=== PATIENT | male | born 1985 | race Two or more races ===

== ENCOUNTER 2021-03-07 08:32 | Outpatient (CLI) | payer OTHER ==
--- NOTE | 2021-03-07 09:26 | SLEEP CARE CONSULTATION ---
Information from patient questionnaire entered by Silverio Chaudhry MA. I have reviewed and concur with the information entered by Silverio Chaudhry MA. This document represents the service I personally performed and the decisions made by , Grace Christianson ARNP. History of Present Illness Service Date and Time: 03/07/2021 0832 Reason for Visit: New patient (PT WILL BRING COPY OF SLEEP STUDY AND CPAP CHIP), Previously diagnosed sleep apnea, sleep apnea on CPAP therapy, Other (UPDATE SUPPLIES) Date of Onset: 10 PLUS YEARS Usual bedtime: 10:00 -12:00 PM Time it takes to fall asleep: 30 MINUTE Snores at night: Yes Observed to quit breathing while asleep: Yes Sleeps alone due to snoring: No Number of times waking at night: 2-3 Reasons for waking at night: reports: Other (MOVING AROUND) Toss, Turn, or Twitch while sleeping: No Recalls having dreams: No Usually gets out of bed at: 7912-8479 Feels refreshed in the morning: No Morning headache: No Sleepy or fatigued during the day: Yes Ever fallen asleep while driving: No Takes day naps: Yes Dreams during day naps: No Prior sleep studies: Yes Year and Where: [facility] [id number]? Type of Sleep Study: Home sleep study Additional HPI information: FRAN ALONSO was previously diagnosed to have unknown, AHI unknown, sleep apnea-hypopnea syndrome and comes in today to establish care for CPAP therapy. - Parasomnia Symptoms Ever been unable to move upon waking from sleep: No Walks in sleep: No Talks in sleep: No Ever acted out dreams in sleep: No Ever felt weak in the knees when startled or emotional: No Bothered by creepy, crawly, restless sensations in legs: No Problems with memory or concentration: No CPAP Compliance Data - Data Reviewed with Patient Average duration of nightly device use: 5 HOURS Compliance rate %: 56 (90 days; 83 last 30 days) Current pressure setting (cmH2O): 5-15 Average residual AHI: 1.9 Central apnea: 0.1 Obstructive apnea: 1.2 Compliance data discussion: He has been getting his supplies from a company in [place] infrequently. He is using a full face ResMed F20, size large. He last changed it 1 month ago. He does have a backup mask at this time. Subjective Patient concerns: reports: nasal congestion (right sided congestion), dry mouth, nose, throat (dry nose), epistaxis (occasional ). denies: aerophagia, mask discomfort, air blowing in eyes, mask leak noise, condensation in mask/hose, other Observed to snore while using device: Yes (occasionally) Current pressure setting perceived as: comfortable On therapy, patient: reports: sleeping better, awakening more refreshed, being more awake and alert during the day, more rested overall. denies: drowsiness while driving Initial [place] Sleepiness Scale score: 6 (2021) Past Medical History Past Medical History: reports: Hypertension Social History The patient's occupation is a [employer]. Patient is and lives in [place]. Have you smoked in the past 12 months: No Quit date: 2007 Alcohol use: Yes Alcohol amount and frequency: 3 -4 X MONLY Caffeine use: No Caffeine amount and frequency: QUIT COFFEE 3 WEEKS AGO Family History Family history of sleep disordered breathing: Yes Family Hx Sleep Apnea: Mother: Snoring, Sleep apnea - Untreated Allergies and Home Medications Known drug allergies: No Drug allergies reviewed: Yes (NKDA) Home medication list reviewed: Yes (no daily medications or supplements) Review of Systems Cardiovascular: reports: high blood pressure (on 5 day blood pressure monitoring) Gastrointestinal: denies: heartburn Psychiatric: denies: anxiety, depression Ear/Nose/Throat: reports: nose bleeds, dry mouth/throat, wisdom teeth removed. denies: tonsillectomy Endocrine: denies: thyroid disease Immunologic: reports: allergies to food or environment (seasonal, dust, pet dander) Physical Exam Vital signs obtained and entered by: Giovanny CHAUDHRY CMA AATX Blood Pressure: 138/70 (LEFT) Heart Rate: 92 O2 Saturation: 98 (WITH PAPER MASK) Height: 5 ft 8 in Weight: 230 lb (WITH CLOTHES) Body Mass Index: 34.9 BMI Classification: Obese Heart: regular rate and rhythm Lungs: clear bilaterally ( ) Impression and Plan 1. Obstructive Sleep Apnea-Hypopnea Syndrome, unknown, with good treatment compliance and good apnea control. On CPAP therapy, the patient has better sleep quality and is more rested overall. Patient states he does not have a copy of hi s last sleep study at home and will bring us a copy for our records. Once I have this I will be able to send an order to a new DME for him to update his supplies. Patient last 90 days compliance at 53% but his 30 day shows 83%. Compliance guidelines reviewed for insurance coverage. Patient was counseled on the difference between meeting compliance and optimal use of CPAP. Optimal use of CPAP is use of CPAP with all sleep to obtain maximum benefit of treatment. Patient is encouraged to use CPAP with all sleep. Patient's apnea severity and rationale for treatment to reduce apnea, improve sleep quality and reduce cardiovascular and cerebrovascular events was reviewed. I also reviewed the benefit of consistent device use of CPAP for hypertension. Patient was encouraged to lose weight for their overall health and to reduce apneas. * Continue auto CPAP pressure at 5-15 cmH2O * Obtain copy of last sleep study * Transfer DME * Update supplies * Notify me if snoring with mask or feeling that the pressure is too much or too little * Attempt to lose weight * Call this office if any problems using CPAP * Return for follow up in 1 year, or sooner if concerns arise Counseling Topics: Spare mask, Weight loss health impact Visit Type: In Office Time Spent with Patient (minutes): 30 Provider Statement: I spent 100% of the Face to Face Visit with the patient with greater than 50% spent counseling the patient and coordination of care.
[2021-03-07 09:27] VITALS: BP 138/70
== END 2021-03-07 08:33 | disposition home or self-care (01) ==
LOC: SC 08:32
PROVIDERS: ATTEND Nurse Practitioner Family
DX: G47.33 Obstructive sleep apnea (adult) (pediatric) (principal); E66.9 Obesity, unspecified; Z68.34 Body mass index [BMI] 34.0-34.9, adult
CPT/HCPCS: 99203; 99212